=== PATIENT | female | born 1965 | race Two or more races ===

== ENCOUNTER → 2018-04-27 | Outpatient (CLI) | payer OTHER ==
[~2018-04-27] MED LIST: ANTICONCEPTIVOS; TOPROL XL25 MG
== END | disposition home or self-care (01) ==
LOC: MAMO-SONO 10:00
DX: Z12.31 Encounter for screening mammogram for malignant neoplasm of breast (principal); N60.11 Diffuse cystic mastopathy of right breast; N60.12 Diffuse cystic mastopathy of left breast